=== PATIENT | male | born 1980 | race Caucasian/White ===

== ENCOUNTER 2017-04-03 20:13 | Emergency (ER) | payer SELFPAY ==
[~2017-04-03 20:13] MED LIST: OXYC-360 PO; TOBRA.3%O OS; Z.0.NO CURRENT MEDS
[2017-04-03 20:15] VITALS: BP 134/85; PULSE 79; RESP 16; TEMP 98.6; O2SAT 99
--- NOTE | 2017-04-03 20:43 | PD ---
HPI Chief Complaint: Eye Problems/Injury Time Seen by Provider: 20:34 Travel History International Travel<30 days: No Contact w/Intl Traveler<30days: No Traveled to known affect area: No History of Present Illness HPI 36-year-old male presents emergency Department complaints of a concrete form body in his left eye for last 3 weeks. He states that he was cutting concrete and felt something go in his eye. Since then he has had foreign body sensation, tearing, redness and mild pain. Some blurred vision. No diplopia. No matting or discharge. He has not had a tetanus shot over 5 years. No glasses or contacts. No alleviating or exacerbating activity PFSH Past Medical History Medical History: Denies Significant Hx Diminished Hearing: No Tetanus Vaccination: > 5 Years ?: Not Past Surgical History Surgical History: No Previous Surgery Social History Alcohol Use: No Tobacco Use: No Substance Use: No Allergies-Medications (Allergen,Severity, Reaction): Coded Allergies: No Known Allergies (Verified Adverse Reaction, Unknown, 04/03/17) Reported Meds & Prescriptions Reported Meds & Active Scripts Active Percocet (Oxycodone/Acetaminophen) 5 Mg/325 Mg Tab 1-2 Tab PO Q4-6HPRN FOR PAIN Tobrex Opth Soln (Tobramycin Sulfate) 0.3 % Soln 1 Drop OS Q4 7 Days Reported No Current Meds (Miscellaneous Medication) Misc Review of Systems General / Constitutional: No: Fever Eyes: Positive: Blurred Vision, Redness, Foreign Body Sensation, Pain, Tearing , Visual changes, No: Diploplia, Photophobia, Drainage HENT: No: Headaches Cardiovascular: No: Chest Pain or Discomfort Respiratory: No: Shortness of Breath Gastrointestinal: No: Abdominal Pain Genitourinary: No: Dysuria Musculoskeletal: No: Pain Skin: No Rash Neurologic: No: Weakness Psychiatric: No: Depression Endocrine: No: Polydipsia Hematologic/Lymphatic: No: Easy Bruising Physical Exam Narrative GENERAL: Well-developed, well-nourished in no apparent distress. Nontoxic appearing. HEAD: Normocephalic, atraumatic. EYES: Pupils equal round and reactive. Extraocular motions intact. No scleral icterus. No injection or drainage in the right eye. The left eye is injected and there appears to be a foreign body on the cornea. It is just at the not o' clock hour outside of his central vision. Lids are flipped and no other foreign bodies seen. Attempts at removal using a cotton-tipped applicators are unsuccessful. The foreign body is removed using a 23-gauge needle. No remaining rust ring noted. Fluorescein stain reveals the deficit from having the foreign body but no significant abrasion or ulceration. ENT: Nose clear. Throat without erythema, tonsillar hypertrophy or exudate. Uvula midline. Airway patent. NECK: Trachea midline. Supple, nontender, moves head freely. No central bony tenderness or spasm. CARDIOVASCULAR: Regular rate and rhythm without murmurs, gallops, or rubs. RESPIRATORY: Clear to auscultation. Breath sounds equal bilaterally. No wheezes , rales, or rhonchi. GASTROINTESTINAL: Abdomen soft, non-tender, nondistended. No hepato-splenomegaly , or palpable masses. No guarding. EXTREMITIES: No clubbing, cyanosis, or edema. No joint tenderness. BACK: Nontender without deformity. No flank tenderness. NEUROLOGICAL: Awake, alert and oriented x 3 .Cranial nerves grossly intact. Motor and sensory grossly within normal limits. Normal speech. Data Data Last Documented VS Vital Signs Date Time Temp Pulse Resp B/P (MAP) Pulse Ox O2 Delivery O2 Flow Rate FiO2 04/03/17 20:15 98.6 79 16 134/85 (101) 99 Room Air Orders Orders Proparacaine 0.5% Opth Soln (Alcaine 0.5 (04/03/17 20:45) Tetanus/Diphtheria Tox Adult (Tetanus/Di (04/03/17 20:45) MDM Medical Decision Making Medical Screen Exam Complete: Yes Emergency Medical Condition: Yes Medical Record Reviewed: Yes Differential Diagnosis MDM: High Differential diagnoses: Acute conjunctivitis (bacterial, viral, allergic, traumatic), glaucoma, iritis, traumatic globe injury, foreign body, corneal abrasion, corneal ulcer, diabetic retinopathy, photokeratitis, herpes keratitis , CMV retinitis Narrative Course Patient's given tetanus immunization. Diagnosis Primary Impression: Foreign body in cornea, left eye, initial encounter Referrals: Keyanna Senior MD 3 days Additional Instructions: Rest. Tylenol or Advil for pain Tobramycin ointment one ribbon 4 times a day. Followup with an eye doctor in 3 days Return to the ER if any problems. Med/Other Pt SpecificInfo: Prescription(s) given Disposition: 01 DISCHARGE HOME Condition: Jones Mathews Apr 03, 2017 20:43
[2017-04-03] MEDS ORDERED: TETANUS/DIPHTHERIA TOXOID ADULT 0.5 ML VIAL IM ONE (20:45)
[2017-04-03] MEDS ORDERED: PROPARACAINE HCL 0.5% OPHT SOLN 15 ML BTL EACH EYE ONE (20:45)
[2017-04-03] MEDS ORDERED: TOBRAMYCIN SULFATE 0.3% OPTH OINT 3.5 GM TUBE LEFT EYE ONE (21:00)
== END 2017-04-03 21:42 | disposition home or self-care (01) ==
LOC: NEPK 20:13
DX: T15.02XA Foreign body in cornea, left eye, initial encounter (principal); X58.XXXA Exposure to other specified factors, initial encounter; Y93.H3 Activity, building and construction; Z23 Encounter for immunization
CPT/HCPCS: 65220; 90471; 90714